=== PATIENT | female | born 1970 | race Native Hawaiian/Other Pacific Islander ===

== ENCOUNTER 2021-03-17 13:29 | Emergency (ER) | payer OTHER, SELFPAY ==
[2021-03-17 13:44] VITALS: BP 174/100; PULSE 91; RESP 16; TEMP 36.6; O2SAT 97; BMI 32.3
--- NOTE | 2021-03-17 17:03 | ED_ITS ---
HPI - Allergic Reaction General Chief complaint: Allergic Reaction Stated complaint: Allergic reaction Time Seen by Provider: 03/17/21 16:55 Source: patient Mode of arrival: Ambulatory Limitations: no limitations History of Present Illness HPI narrative: Patient is a 50-year-old female history of diabetes presenting with rash ongoing for who. She mostly on her extremities and torso. She denies any fever or chills. No new substances. No new foods. She cannot stop itching. Related Data Previous Rx's Medication Instructions Recorded prednisone 20 mg tablet 40 mg PO DAILY #10 tab 03/17/21 Allergies Allergy/AdvReac Type Severity Reaction Status Date / Time No Known Drug Allergies Allergy Verified 03/17/21 13:48 Review of Systems Review of Systems Narrative: GENERAL: Denies chills,fever HEENT: Denies throat pain RESPIRATORY: Denies dyspnea, cough, wheezing CARDIOVASCULAR: Denies chest pain, palpitations GASTROINTESTINAL: Denies nausea, vomiting MUSCULOSKELETAL: Denies extremity pain, injury SKIN: See HPI NEUROLOGIC: Denies weakness, dizziness, headache, numbness 8 point review of systems is negative except for those stated above and HPI Patient History Social History Smoking Status: Never smoker Smoking Status: Never smoker alcohol intake frequency: 0-2 drinks per day Substance Use Type: does not use Exam Initial Vital Signs Initial Vital Signs: Vital Signs Temperature 97.9 F 03/17/21 13:44 Pulse Rate 91 H 03/17/21 13:44 Respiratory Rate 16 03/17/21 13:44 Blood Pressure 174/100 H 03/17/21 13:44 Pulse Oximetry 97 03/17/21 13:44 GENERAL: Alert well-appearing 50-year-old female itching CARDIOVASCULAR: peripheral pulses in tact, cap refill <2 sec RESPIRATORY: No respiratory distress, speaks in full sentences without difficulty. No facial swelling or lip swelling EXTREMITIES: Normal range of motion, no clubbing or edema. Neurovascularly intact NEUROLOGICAL: Cranial nerves II through XII grossly intact. Normal gait and speech. SKIN: Multiple areas of dry skin pick off areas no surrounding erythema fluctuation or abscess. Minimal hives. Course Vital Signs Vital signs: Vital Signs - 8 hr 03/17/21 13:44 03/17/21 17:47 Temperature 97.9 F Pulse Rate 91 H 86 Respiratory Rate 16 16 Blood Pressure 174/100 H 174/101 H Pulse Oximetry 97 99 MDM - Allergic Reaction MDM Narrative Medical decision making narrative: No obvious trigger for allergic reaction. She has no sign of anaphylaxis. Will put her on prednisone and Benadryl and discussed with her that this will elevate her sugars but we are only giving it for 5 days. Discharge Plan Departure Patient Disposition: Home Clinical Impression: Allergic reaction Instructions: DI for Hives Activity Restrictions/Additional Instructions: *You have been diagnosed with allergic reaction *What to do: At this time you may need allergy testing. *Continue to take medications as directed Prednisone 40 mg once a day, this will cause your sugars to be elevated but only for 5 days Benadryl 25-50 mg every 6 hours if needed for itching, especially before bed *Follow up with your primary care provider in 2-3 days *Return to ER if you should have Charles redness fevers, difficulty breathing to ngue swelling lip swelling tingling any new, worsening or concerning symptoms Prescriptions: New prednisone 20 mg tablet 40 mg PO DAILY Qty: 10 RF: 0
[2021-03-17 17:47] VITALS: BP 174/101; PULSE 86; RESP 16; O2SAT 99
== END 2021-03-17 17:47 | disposition home or self-care (01) ==
PROVIDERS: Emergency Provider Emergency Medicine
DX: L50.9 Urticaria, unspecified (principal)
CPT/HCPCS: 99281